=== PATIENT | female | born 1960 | race Caucasian/White ===

== ENCOUNTER → 2017-12-28 | Outpatient (CLI) | payer BC | LOC: CIMAGING 11:49 | PROVIDERS: ATTEND Family Medicine | DX: S82.831A Other fracture of upper and lower end of right fibula, initial encounter for closed fracture (principal) | CPT/HCPCS: 73610-PO ==

== ENCOUNTER 2018-08-26 13:45 | Emergency (ER) | payer BC ==
[2018-08-26] MEDS ORDERED: ONDANSETRON 4 MG/2 ML VIAL IVP ONE ×3 (13:53→17:42)
[2018-08-26] MEDS ORDERED: NS 1,000 ML IV ONE ×2 (13:53→16:00)
[2018-08-26] MEDS ORDERED: HYDROmorphONE/DILAUDID 2 MG/ML INJ IVP ONE ×3 (14:10→15:34)
[2018-08-26] MEDS ORDERED: METOCLOPRAMIDE 10 MG/2 ML VIAL IVP ONE (14:10)
--- NOTE | 2018-08-26 14:17 | EDPHY ---
H & P Source: Patient, Family (She is accompanied by her ) Exam Limitations: No limitations - Medical/Surgical History Hx Asthma: No Hx Chronic Respiratory Disease: Yes Hx Diabetes: Yes Hx Cardiac Disease: No Hx Renal Disease: No Hx Cirrhosis: No Hx Alcoholism: No Hx HIV/AIDS: No Hx Splenectomy or Spleen Trauma: No Other PMH: section,SARCODOSIS, insulin pump, DC 09/13/2015 - Social History Smoking Status: Never smoked Alcohol Use: Occasionally Drug Use: None Time Seen by Provider: 08/26/18 13:52 HPI/ROS: This patient complains of left flank pain that is severe intensity crampy and colicky in nature. She has associated left lower quadrant pain that is moderate intensity. She reports some associated dysuria. She also did described feeling of abdominal bloating. Her symptoms started early this morning and persist. She notes no exacerbating factors. She has an apple this morning and then started vomiting thereafter. She has ongoing mild nausea currently. She does not recall having this pain in the past. Her brought her in by private vehicle for evaluation. Constitutional: No fevers or chills HEENT: No URI symptoms Pulmonary: No complaints Cardiovascular: No lightheadedness GI: Nausea and vomiting. No hematemesis. Normal bowel movements. : As per HPI. She has not noticed any hematuria. Integumentary: No rash 10 point review of symptoms is performed and otherwise negative with exception of pertinent positives and negatives listed in HPI and ROS (Roland Mccurdy) - Medical/Surgical History PMH: Kidney injury while 25 years ago. Patient does know any more details the other than this but child was delivered a month early due to this illness. She regained normal urinary function/kidney function thereafter Type 1 diabetes Dyslipidemia Hypothyroidism Past surgical history: and a laparotomy for ovarian cyst many years ago (Roland Mccurdy) - Physical Exam Exam: General Appearance: Pleasant moderately obese female in moderate distress due to pain. She is shifting around frequently trying to find a more comfortable position Eyes: Pupils equal and round no pallor or injection. ENT, Mouth: Mucous membranes dry. Respiratory: There are no retractions, lungs are clear to auscultation. Cardiovascular: Regular rate and rhythm. No murmur gallop rub Gastrointestinal: Normoactive, soft, mild left lower quadrant tenderness with no guarding or rebound. No obvious distention is present Back: Positive left-sided CVA tenderness-moderate Neurological: GCS 15 with no focal deficits. Skin: Warm and dry, no rashes. Musculoskeletal: Neck is supple nontender. Extremities are symmetrical, full range of motion. Psychiatric: Mood and affect are normal Ureteral stone, pyelonephritis, diverticulitis, mesenteric adenitis, low back strain aortic aneurysm, aortic dissection (Roland Mccurdy) Constitutional: Initial Vital Signs Temperature (C) 36.8 C 08/26/18 13:59 Heart Rate 76 08/26/18 13:59 Respiratory Rate 22 H 08/26/18 13:59 Blood Pressure 136/71 H 08/26/18 13:59 O2 Sat (%) 96 08/26/18 13:59 O2 Delivery Mode Nasal Cannula O2 (L/minute) 1 Allergies/Adverse Reactions: No Known Allergies Allergy (Verified 08/26/18 13:53) Home Medications: Medication Instructions Recorded COZAAR 05/19/10 HUMALOG 05/19/10 Lipitor 10 mg 05/19/10 NORTRIPTYLINE HCL 05/19/10 SYNTHROID 08/12/13 Metoprolol Tartrate [Lopressor] 25 mg PO BID 09/20/15 Ondansetron Odt [Zofran Odt 4 mg 4 mg PO Q4PRN PRN #7 tab 08/26/18 (*)] Tamsulosin HCl [Flomax] 0.4 mg PO DAILY #4 cap 08/26/18 oxyCODONE/APAP 5/325 [Percocet 1 - 2 tab PO Q4PRN PRN #11 tab 08/26/18 5/325 (*)] Medical Decision Making - Diagnostics Imaging Results: Imaging Impressions Abdomen CT 08/26/18 14:32 Impression: 4-mm calculus in the distal left ureter at the ureterovesical junction with mild hydronephrosis and hydroureter. Nonobstructive right nephrolithiasis. Results called and discussed with Cami Soto MD on August 26, 2018 at 1534 hours. ED Course/Re-evaluation: IV normal saline bolus Reglan and Benadryl for nausea, Dilaudid IV for pain with partial improvement. At 2:45 p.m. Patient as 7/10 pain after initial round of medications, after review of basic metabolic panel ordered Toradol 15 mg in addition I spoke with Dr. Soto at 3:[address] studies pending for/final disposition. He will follow up on CT and final disposition of this patient ( Roland Mccurdy) 1500: Patient is signed out to me at change of shift by Dr. Mccurdy. I took report from Dr. Mccurdy. I evaluated the patient's laboratory studies. Patient's chemistry is notable for creatinine 1.1 and a glucose of 217. Patient' s CBC shows a slightly low white count of 3.4. I went to evaluate the patient. She is currently in CT imaging. 15 20: I went rechecked the patient. She was fairly uncomfortable. She was complaining of left flank and left sided abdominal discomfort. She states it is waxing waning. On exam her abdomen is soft, nontender nondistended. She states that when Dr. Mccurdy palpated her she had a fair amount of tenderness but did not seem to be particularly tender at the moment. GENERAL: Mild acute distress, alert. HEENT: Eyes normal to inspection, normal pharynx, slightly dry mucous membranes. NECK: Normal, supple. RESPIRATORY: Clear to auscultation bilaterally, no rales, rhonchi or wheezing. CVS: Regular rate and rhythm, no rubs, murmurs, or gallops. ABDOMEN: Soft, nontender, nondistended, no organomegaly. BACK: Normal to inspection, no CVA tenderness. SKIN: Normal color, no rash, warm, dry. No pallor. EXTREMITIES: No pedal edema, no joint swelling. NEURO/PSYCH: Alert and oriented, normal mood and affect. 15 30: CT of the abdomen pelvis: Please refer the dictated report by Dr. Ribera. Patient has a 4 mm stone at the left UVJ. There is hydronephrosis noted. No obstruction. Patient was given Dilaudid 0.5 mg IV. I discussed the results with the patient. I answered all her questions. 16 20: The patient continues to have left-sided abdominal pain. She has had nausea. She was given fentanyl 100 mcg and Zofran 4 mg IV. 1725: I rechecked the patient. She was feeling better. I have when I was in the room talking with her she began to feel nauseated. She vomited multiple times. She was given Zofran 4 mg IV. (Cami Soto) Differential Diagnosis: My differential includes but not limited to kidney stone, pyelonephritis, urinary tract infection, small-bowel obstruction, perforation, diverticulitis ( Cami Soto) - Data Points Laboratory Results: 08/26/18 14:15 POC Sodium 140 mEq/L mEq/L (135-145) POC Potassium 4.7 mEq/L mEq/L (3.3-5.0) POC Chloride 100.0 mEq/L mEq/L (97-110) POC Total CO2 30 mEq/L mEq/L (22-31) POC BUN 19 mg/dL mg/dL (7-23) POC Creatinine 1.1 mg/dL H mg/dL (0.6-1.0) POC Glucose 217 mg/dL H mg/dL (70-100) POC Calcium 9.8 mg/dL mg/dL (8.5-10.4) Medications Given: Discontinued Medications Diphenhydramine HCl (Benadryl Injection) 25 mg IVP EDNOW ONE Stop: 08/26/18 14:11 Last Admin: 08/26/18 14:27 Dose: 25 mg Fentanyl (Sublimaze) 100 mcg IVP EDNOW ONE Stop: 08/26/18 16:25 Last Admin: 08/26/18 16:29 Dose: 100 mcg Hydromorphone HCl (Dilaudid) 0.5 mg IVP EDNOW ONE Stop: 08/26/18 14:11 Last Admin: 08/26/18 14:45 Dose: Not Given Hydromorphone HCl (Dilaudid) 1 mg IVP EDNOW ONE Stop: 08/26/18 14:13 Last Admin: 08/26/18 14:29 Dose: 1 mg Hydromorphone HCl (Dilaudid) 0.5 mg IVP EDNOW ONE Stop: 08/26/18 15:35 Last Admin: 08/26/18 15:45 Dose: 0.5 mg Sodium Chloride (Ns) 1,000 mls @ 0 mls/hr IV EDNOW ONE; Wide Open PRN Reason: Protocol Stop: 08/26/18 13:54 Last Admin: 08/26/18 14:25 Dose: 1,000 mls Ketorolac Tromethamine (Toradol) 15 mg IVP EDNOW ONE Stop: 08/26/18 14:41 Last Admin: 08/26/18 14:43 Dose: 15 mg Metoclopramide HCl (Reglan Injection) 10 mg IVP EDNOW ONE Stop: 08/26/18 14:11 Last Admin: 08/26/18 14:25 Dose: 10 mg Ondansetron HCl (Zofran) 4 mg IVP EDNOW ONE Stop: 08/26/18 13:54 Last Admin: 08/26/18 14:46 Dose: Not Given Ondansetron HCl (Zofran) 4 mg IVP EDNOW ONE Stop: 08/26/18 16:25 Last Admin: 08/26/18 16:26 Dose: 4 mg Ondansetron HCl (Zofran) 4 mg IVP EDNOW ONE Stop: 08/26/18 17:43 Last Admin: 08/26/18 17:51 Dose: 4 mg Ondansetron HCl (Zofran Odt 4 Mg Prepack#2) 1 btl TAKEHOME EDNOW ONE Stop: 08/26/18 17:44 Last Admin: 08/26/18 17:51 Dose: 1 btl Oxycodone/Acetaminophen (Percocet 5/325) 2 tab PO EDNOW ONE Stop: 08/26/18 17:28 Last Admin: 08/26/18 17:33 Dose: Not Given Oxycodone/Acetaminophen (Percocet 5/325mg Prepack#4) 1 btl TAKEHOME EDNOW ONE Stop: 08/26/18 17:33 Last Admin: 08/26/18 17:38 Dose: 1 btl Tamsulosin HCl (Flomax) 0.4 mg PO EDNOW ONE Stop: 08/26/18 15:47 Last Admin: 08/26/18 15:47 Dose: 0.4 mg Point of Care Test Results: CBC CBC Collection Date 08/26/18 CBC Collection Time 14:12 WBC 3.4 RBC 4.46 HGB 14.1 HCT 40.4 PLT 213 Neut # 1.9 Neut 54.6 LYMPH # 1.3 LYMPH 38.7 Other WBC # 0.2 Other WBC 6.7 MCV 90.6 Chemistry 08/26/18 14:15 POC Sodium 140 mEq/L mEq/L (135-145) POC Potassium 4.7 mEq/L mEq/L (3.3-5.0) POC Chloride 100.0 mEq/L mEq/L (97-110) POC Total CO2 30 mEq/L mEq/L (22-31) POC BUN 19 mg/dL mg/dL (7-23) POC Creatinine 1.1 mg/dL H mg/dL (0.6-1.0) POC Glucose 217 mg/dL H mg/dL (70-100) POC Calcium 9.8 mg/dL mg/dL (8.5-10.4) Urine Dip Collection Date 08/26/18 Collection Time 14:00 Specific [place] (1.002-1.030) 1.030 PH (5.0-7.5) 5.5 Leukocytes (Negative) Negative Nitrites (Negative) Negative Protein (Negative) Negative Glucose (Negative) Negative Ketones (Negative) Negative Urobilnogen (0.2-1.0 EU) 0.2 Bilirubin (Negative) Negative Blood (Negative) Negative Departure - Departure Disposition: Home, Routine, Self-Care Clinical Impression: Renal colic on left side, Kidney stone on left side Condition: Good Instructions: Oxycodone/Acetaminophen (By mouth), Ondansetron (By injection), Kidney Stones (ED) Additional Instructions: Return with increasing pain, vomiting or any other concerns. You have a 4 mm stone in your left ureter. You been given follow-up with Dr. Wesley. Call first thing tomorrow morning to make the next available appointment. Take ibuprofen 600 mg every 6 hr for the next 3 days. Take your Flomax as directed daily. Take Percocet for breakthrough pain. Take Zofran (ondansetron) for nausea. Referrals: Lucas Wesley MD [Medical Doctor] - 5-7 days, call for appt. Velma Wylie [Primary Care Provider] - As per Instructions Prescriptions: Ondansetron Odt [Zofran Odt 4 mg (*)] 4 mg PO Q4PRN PRN #7 tab PRN Reason: For Nausea & Vomiting oxyCODONE/APAP 5/325 [Percocet 5/325 (*)] 1 - 2 tab PO Q4PRN PRN #11 tab PRN Reason: For Moderate To Severe Pain Tamsulosin HCl [Flomax] 0.4 mg PO DAILY #4 cap
[2018-08-26] MEDS ORDERED: KETOROLAC 15 MG/1 ML SDV IVP ONE (14:40)
[2018-08-26] MEDS ORDERED: IOPAMIDOL (ISOVUE-300) 100 ML BTL ONE (14:45)
[2018-08-26] MEDS ORDERED: TAMSULOSIN HCL 0.4 MG CAP PO ONE ×2 (15:39→15:46)
[2018-08-26] MEDS ORDERED: ONDANSETRON 4 MG/2 ML VIAL ONE (16:19)
[2018-08-26] MEDS ORDERED: fentaNYL 100 MCG/2 ML INJ ONE (16:22)
[2018-08-26] MEDS ORDERED: fentaNYL 100 MCG/2 ML INJ IVP ONE (16:24)
[2018-08-26] MEDS ORDERED: OXYCODONE/APAP 5/325 TAB PO ONE (17:27)
[2018-08-26] MEDS ORDERED: OXYCODONE/APAP 5/325MG PREPACK#4 BTL TAKEHOME ONE (17:32)
[2018-08-26] MEDS ORDERED: ONDANSETRON 4MG PREPACK#2 BTL TAKEHOME ONE ×2 (17:36→17:43)
[2018-08-26 18:29] VITALS: BP 134/78
== END 2018-08-26 18:20 | disposition home or self-care (01) ==
LOC: CED 13:45
DX: N23 Unspecified renal colic (principal); N20.0 Calculus of kidney; E86.9 Volume depletion, unspecified
CPT/HCPCS: 74177-PO; 80048-ER; 96361-ER; 96374-ER; 96375-ER; 96376-ER; J1170; J1200; J1885; J2405; J2765; J3010; Q9967